=== PATIENT | male | born 1990 | race Caucasian/White ===

== ENCOUNTER 2020-09-06 09:53 | Emergency (ER) | payer OTHER ==
[~2020-09-06 09:53] MED LIST: NAPROSYN500 MG PO
[2020-09-06] MEDS ORDERED: IBUPROFEN800 MG PO (10:16)
== END 2020-09-06 11:05 | disposition home or self-care (01) ==
LOC: ER1 09:53
DX: S86.211A Strain of muscle(s) and tendon(s) of anterior muscle group at lower leg level, right leg, initial encounter (principal); X50.1XXA Overexertion from prolonged static or awkward postures, initial encounter; Y92.89 Other specified places as the place of occurrence of the external cause; Y99.0 Civilian activity done for income or pay
CPT/HCPCS: 73564; 99283

== ENCOUNTER → 2020-09-22 | Outpatient (CLI) | payer OTHER ==
[~2020-09-22] MED LIST changes: +IBUPROFEN800 MG PO
== END ==
LOC: MRI 12:32
DX: M25.461 Effusion, right knee (principal); R93.7 Abnormal findings on diagnostic imaging of other parts of musculoskeletal system; R60.0 Localized edema; S82.141A Displaced bicondylar fracture of right tibia, initial encounter for closed fracture; X58.XXXA Exposure to other specified factors, initial encounter
CPT/HCPCS: 73721

== ENCOUNTER 2021-05-15 03:31 | Emergency (ER) | payer BC ==
[2021-05-15] MEDS ORDERED: ZOFRAN4 MG PO (06:45)
[2021-05-15] MEDS ORDERED: BENTYL 20MG TAB20 MG PO (06:45)
[2021-05-15] MEDS ORDERED: PROVENTIL HFA6.7 GM INH (06:45)
== END 2021-05-15 06:48 | disposition home or self-care (01) ==
LOC: ER1 03:31
DX: U07.1 COVID-19 (principal)
CPT/HCPCS: 71045; 99284

== ENCOUNTER 2021-09-11 11:16 | Inpatient (IN) | payer BC ==
[~2021-09-11] VITALS: Ht 185.4 cm; Wt 107.0 kg
[~2021-09-11 11:16] MED LIST changes: +BENTYL 20MG TAB20 MG PO; +PROVENTIL HFA6.7 GM INH; +ZOFRAN4 MG PO
[2021-09-11 12:35] LABS: HEMOGLOBIN 13.9 gm/dl (14.0-17.5); RED BLOOD COUNT 4.68 M/UL (4.20-5.50); WHITE BLOOD COUNT 9.8 K/UL (4.5-11.0)
[2021-09-11 12:38] LABS: BUN/CREATININE RATIO 18 (0-10)
[2021-09-11] MEDS ORDERED: TYLENOL EXTRA500 MG PO (14:28)
[2021-09-11] MEDS ORDERED: IBU800 MG PO (14:28)
[2021-09-12 03:46] LABS: HEMOGLOBIN 12.6 gm/dl (14.0-17.5); WHITE BLOOD COUNT 7.7 K/UL (4.5-11.0)
[2021-09-12 04:04] LABS: RED BLOOD COUNT 4.18 M/UL (4.20-5.50)
[2021-09-13] MEDS ORDERED: AUGMENTIN 875-1 EACH PO (08:32)
== END 2021-09-13 11:15 | disposition home or self-care (01) | DRG 392 ==
LOC: ER1 11:16 → MED SURG 4 14:00 → CDU 14:00 → MED SURG 4 16:02
PROVIDERS: Physician Assistant; ADMIT Surgery
DX: K57.20 Diverticulitis of large intestine with perforation and abscess without bleeding (principal); Z20.822 Contact with and (suspected) exposure to COVID-19
CPT/HCPCS: 36415; 80053; 81001; 85025; 85027; 96374; 96375; 99285; J2270; J2405; J2543; J7030; Q9967; U0002

== ENCOUNTER → 2021-10-16 | Outpatient (CLI) | payer BC ==
[~2021-10-16] MED LIST changes: +AUGMENTIN 875-1 EACH PO; +IBU800 MG PO; +TYLENOL EXTRA500 MG PO
== END ==
LOC: CT 09:15
DX: K57.20 Diverticulitis of large intestine with perforation and abscess without bleeding (principal)
CPT/HCPCS: Q9967